=== PATIENT | female | born 1970 | race Caucasian/White ===

== ENCOUNTER 2020-10-06 12:30 | Emergency (ER) | payer MEDICARE, BC ==
[2020-10-06 19:19] LABS: HEMOGLOBIN 12.1 gm/dl (12.3-15.3); RED BLOOD COUNT 4.12 M/UL (4.00-5.10); WHITE BLOOD COUNT 3.2 K/UL (4.5-11.0)
[2020-10-06 19:27] LABS: BUN/CREATININE RATIO 21 (0-10)
== END 2020-10-06 21:04 | disposition home or self-care (01) ==
LOC: ER1 12:30
PROVIDERS: Physician Assistant
DX: U07.1 COVID-19 (principal); I10 Essential (primary) hypertension; G35 Multiple sclerosis; Z79.899 Other long term (current) drug therapy
CPT/HCPCS: 71045; 80053; 85025; 99283; M0245

== ENCOUNTER → 2020-12-29 | Outpatient (CLI) | payer MEDICARE, BC | LOC: EMI 08:41 | DX: G35 Multiple sclerosis (principal) | CPT/HCPCS: 70553; 72156; A9577 ==

== ENCOUNTER → 2021-03-19 | Outpatient (CLI) | payer MEDICARE, BC | LOC: KOH-I 13:57 | DX: M25.512 Pain in left shoulder (principal) | CPT/HCPCS: 73030 ==